=== PATIENT | male | born 1990 | race Caucasian/White ===

== ENCOUNTER 2020-02-10 15:36 | Emergency (ER) | payer BC ==
[~2020-02-10] VITALS: Ht 177.8 cm; Wt 68.1 kg
[2020-02-10] MEDS ORDERED: LIDOCAINE 1% INJ 20 ML 20 ML VIAL ONE (15:41)
[2020-02-10] MEDS ORDERED: LIDOCAINE 1% INJ 20 ML 20 ML VIAL INJ STA (15:43)
[2020-02-10] MEDS ORDERED: ESCI10TA PO (15:46)
--- NOTE | 2020-02-10 15:47 | ED Upper Extremity ---
General Stated Complaint: RT INDEX FINGER LAC Source: patient History of Present Illness Date Seen by Provider: Feb 10, 2020 Time Seen by Provider: 15:39 Initial Comments 29 yo male presenting with table saw injury to right index finger. He is left hand dominant. He was working with a piece of wood and it slipped causing his hand to come forward and his right index finger hit the blade of the table saw. He has a laceration/avulsion to the index finger tip. He denies any numbness or tingling. He has full range of motion of the finger. he states his last tetanus booster was 5 years ago with the siOPTICA. Allergies and Home Medications Allergies Coded Allergies: Penicillins (Unverified Allergy, Unknown, 05/06/13) Home Medications Clindamycin HCl 300 Mg Capsule, 300 MG PO TID Prescribed by: JUANY BASSETT on 02/10/20 1649 Escitalopram Oxalate 10 Mg Tablet, 10 MG PO DAILY, (Reported) Patient Home Medication List Home Medication List Reviewed: Yes Review of Systems Constitutional: no symptoms reported EENTM: no symptoms reported Respiratory: no symptoms reported Cardiovascular: no symptoms reported Gastrointestinal: no symptoms reported Genitourinary: no symptoms reported Musculoskeletal: see HPI Skin: see HPI Psychiatric/Neurological: Denies Numbness, Denies Paresthesia Past Kibtppd-Ymajzk-Arnzcn Hx Past Med/Social Hx: Reviewed Nursing Past Med/Soc Hx Patient Social History Recent Foreign Travel: No Contact w/Someone Who Travel: No Immunizations Up To Date Tetanus Booster (TDap): Less than 5yrs Past Medical History Surgeries: No Respiratory: No Cardiac: No Neurological: No Reproductive Disorders: No Sexually Transmitted Disease: No Genitourinary: No Gastrointestinal: No Musculoskeletal: No Psychosocial: Yes Anxiety, Depression Physical Exam Vital Signs Vital Signs - First Documented 02/10/20 15:40 Temp 35.9 Pulse 95 Resp 20 B/P (MAP) 120/71 (87) Pulse Ox 98 O2 Delivery Room Air Capillary Refill : Height, Weight, BMI Height: 5'10" Weight: 130lbs. oz. 58.886113tn; BMI Method: General Appearance: WD/WN, mild distress HEENT: PERRL/EOMI Hand: normal ROM, deformity (tip of right index finger from laceration), laceration (right index finger), soft tissue tenderness (index finger on right) Neurologic/Psychiatric: alert, oriented x 3 Skin: warm/dry, other (laceration avulsion to tip of right index finger) Procedures/Interventions Wound Location: Upper Extremities (right index finger) Wound Length (cm): 2 Wound's Depth, Shape: contused tissue (avulsed finger tip of right index finger) Wound Explored: clean Betadine Prep?: Yes Anesthesia: 1% Lidocaine (5 mL ring digital block) Volume Anesthetic (ccs): 5 Suture: Prolene Suture Size: 4-0 Number of Sutures: 3 Layer Closure?: 1 Sterile Dressing Applied?: Yes Progress Verbal consent obtained from patient for cleaning and repair of laceration and avulsion of right index finger tip. After digital block with 1% plain lidocaine placed with ring block a Tornicot was applied. Then using Betadine scrub solution the wound was scrubbed with gauze. No foreign bodies seen. Wound edges approximated as best as I could with tissue present using 3 simple interrupted stitches of 4-0 Prolene. The Tornicot was removed after being in place for a total of 70 minutes. Patient tolerated procedure well without any immediate complication. Counseled on risk of infection with wood and organic material and will start on antibiotic of clindamycin with his Pcn allergy. Counseled on follow up and return precautions. Stitches to be removed in 10-14 days, be seen sooner if concern for infection. Progress/Results/Core Measures Results/Orders My Orders Orders - JUANY BASSETT MD Lidocaine 1% Inj 20 Ml (Xylocaine 1% Inj (02/10/20 15:43) Finger(S) (02/10/20 15:44) Lidocaine 1% Inj 20 Ml (Xylocaine 1% Inj (02/10/20 15:41) Vital Signs/I&O 02/10/20 15:40 Temp 35.9 Pulse 95 Resp 20 B/P (MAP) 120/71 (87) Pulse Ox 98 O2 Delivery Room Air Progress Progress Note #1: Progress Note obtain imaging to look for bone involvement or foreign body fragments. place ring block with 1 % plain lidocaine for anesthetic and pain control. Then clean wound and see if there is anything to try and close with stitches or if it is just an avulsion with wound cleaning and time to heal. Progress Note #2: Progress Note no fracture or bone involvement seen on xray. Pt tolerated repair of wound without any immediate complication or concern. Counseled on follow up and return precautions. Start on Clindamycin as outpatient to help try and prevent infection. Diagnostic Imaging Diagonstic Imaging: Xray Plain Films/CT/US/NM/MRI: other (finger) Comments [facility] [place], [place] NAME: JOBY ELENA [facility] REC#: [id number] PT STATUS: REG ER : 1990 PHYSICIAN: JUANY BASSETT MD ADMIT DATE: 02/10/20/ER FS Draft Date of Exam:02/10/20 FINGER(S) INDICATION: Injury to right second finger. TECHNIQUE: AP, oblique, and lateral views of the right second finger are obtained. FINDINGS: No fracture or acute bony abnormality is seen. There is no radiopaque foreign body. IMPRESSION: No evidence of fracture or radiopaque foreign body. Dictated on workstation # [id number] Dict: 02/10/20 1553 Trans: 02/10/20 1559 [id number] Interpreted by: MUKUL GARCIA MD Electronically signed by: Departure Impression Primary Impression: Laceration of right index finger w/o foreign body w/o damage to nail Qualified Codes: S61.210A - Laceration without foreign body of right index finger without damage to nail, initial encounter Additional Impressions: Avulsion of finger tip Qualified Codes: S61.209A - Unspecified open wound of unspecified finger without damage to nail, initial encounter Contact with powered saw as cause of accidental injury Disposition: 01 HOME, SELF-CARE Condition: Stable Departure-Patient Inst. Decision time for Depature: 16:52 Referrals: NO,LOCAL PHYSICIAN (PCP) Primary Care Physician [facility] Patient Instructions: Laceration Repair With Stitches ED, Wound Care ED, Common Finger Injuries ED Add. Discharge Instructions: Keep wound clean and dry with dressing in place for first 24 hours then may wash with soap and water but do not soak it. Then apply antibiotic ointment and clean dry dressing at least 2 to 3 times a day and as needed if the wound gets dirty Take the full course of antibiotics to help prevent infection. Use Ibuprofen and acetaminophen if needed for pain. Ice 15-20 minutes every few hours as needed for pain and swelling. Elevate your injury above heart level to help with pain and swelling. Return or be seen in clinic for redness streaking up your finger and hand, pus draining from wound, or fever over 101 F. These would be signs you may have infection and may need IV antibiotics The stitches would need removed in 10-14 days. Scripts Clindamycin HCl (Clindamycin HCl) 300 Mg Capsule 300 MG PO TID for finger laceration for 7 Days, #21 CAP 0 Refills Prov: JUANY BASSETT MD 02/10/20 JUANY BASSETT MD Feb 10, 2020 15:47
--- NOTE | 2020-02-10 15:59 | Diagnostic Imaging Report ---
INDICATION: Injury to right second finger. TECHNIQUE: AP, oblique, and lateral views of the right second finger are obtained. FINDINGS: No fracture or acute bony abnormality is seen. There is no radiopaque foreign body. IMPRESSION: No evidence of fracture or radiopaque foreign body. Dictated by: Dictated on workstation # [id number]
[2020-02-10] MEDS ORDERED: CLIN300C12 PO (16:49)
[2020-02-10 16:58] VITALS: BP 120/73
== END 2020-02-10 16:58 | disposition home or self-care (01) ==
LOC: EDUNIT# 15:36 → ER FS 15:38
DX: S61.210A Laceration without foreign body of right index finger without damage to nail, initial encounter (principal); F41.9 Anxiety disorder, unspecified; F32.9 Major depressive disorder, single episode, unspecified; Z88.0 Allergy status to penicillin; W31.2XXA Contact with powered woodworking and forming machines, initial encounter
CPT/HCPCS: 12001; 73140

== ENCOUNTER 2020-02-22 13:36 | Emergency (ER) | payer BC ==
[~2020-02-22 13:36] MED LIST: CLIN300C12 PO; ESCI10TA PO
[2020-02-22 13:39] VITALS: BP 115/58
== END 2020-02-22 13:47 | disposition home or self-care (01) ==
LOC: EDUNIT# 13:36 → ER FS 13:38
DX: S61.210D Laceration without foreign body of right index finger without damage to nail, subsequent encounter (principal); X58.XXXD Exposure to other specified factors, subsequent encounter